=== PATIENT | male | born 1970 | race Caucasian/White ===

== ENCOUNTER 2020-05-02 10:36 | Day surgery (SDC) | payer MEDICAID ==
[2020-04-25 16:49] LABS: BASOPHILS % (AUTO) 0.1 % (0-1); EOSINOPHILS # (AUTO) 0.1 X10'3 (0-0.9); EOSINOPHILS % (AUTO) 1.3 % (0-6); LYMPHOCYTES # (AUTO) 1.9 X10'3 (1.1-4.8); LYMPHOCYTES % (AUTO) 22.4 % (21-51); MEAN CORPUSCULAR HEMOGLOBIN 33.8 PG (27.0-31.0); MEAN CORPUSCULAR HGB CONC 33.8 g/dL (33.0-36.5); MEAN CORPUSCULAR VOLUME 100.1 FL (78-98); MEAN PLATELET VOLUME 6.5 FL (7.4-10.4); MONOCYTES # (AUTO) 0.6 X10'3 (0-0.9); MONOCYTES % (AUTO) 7.5 % (2-12); NEUTROPHILS # (AUTO) 5.8 X10'3 (1.8-7.7); NEUTROPHILS % (AUTO) 68.7 % (42-75); PRE OP HEMATOCRIT 45.7 % (42.0-52.0); PRE OP HEMOGLOBIN 15.4 g/dL (14.0-17.9); PRE OP PLATELET COUNT 295 X10'3 (140-440); RED BLOOD COUNT 4.57 X10'6 (4.70-6.10); RED CELL DISTRIBUTION WIDTH 13.2 % (11.5-14.5)
[2020-04-25 16:50] LABS: ALBUMIN 3.7 G/DL (3.4-5.0); ALBUMIN/GLOBULIN RATIO 0.9 (1.1-1.5); ALKALINE PHOSPHATASE 86 IU/L (46-116); BLOOD UREA NITROGEN 20 MG/DL (7-18); BUN/CREATININE RATIO 17.4 (5.4-32.0); CALCIUM 9.3 MG/DL (8.5-10.1); CHLORIDE 105 MMOL/L (99-107); CREATININE 1.15 MG/DL (0.60-1.10); PRE OP ALT 27 U/L (30-65); PRE OP ANION GAP 8 (8-16); PRE OP AST 15 U/L (10-37); PRE OP BILIRUB, TOTAL 0.6 MG/DL (0.0-1.0); PRE OP GLUCOSE 98 MG/DL (70-104); PRE OP POTASSIUM 4.1 MMOL/L (3.4-5.1); PRE OP SODIUM 141 MMOL/L (135-145); TOTAL CARBON DIOXIDE 28.4 MMOL/L (24-32); TOTAL PROTEIN 7.6 G/DL (6.4-8.2); eGFR 68 ML/MIN
[2020-05-02] VITALS (11 sets, daily range): BP systolic 129–157; BP diastolic 84–107
[~2020-05-02] VITALS: Ht 177.8 cm; Wt 89.4 kg
[~2020-05-02 10:36] MED LIST: BUPIVAcaine/PF 2.5 mg/ml (0.25%) 30ml vial ONE; CYCL-1 PO; IBUP-1984 PO; LIDOcaine 1% 30ml preserv. free vial ONE; ceFAZolin 2gm in dextrose, iso 50 ML IV ONE; famotidine 20mg tablet PO ONE; ringers solution, lacted 1,000 ML IV SCH
[2020-05-02] MEDS ORDERED: midazolam 1 mg/ML 2ml injection ONE (12:58)
[2020-05-02] MEDS ORDERED: fentaNYL /PF 50mcg/ml 5ml ampule ONE (12:58)
[2020-05-02] MEDS ORDERED: glycopyrrolate 0.2mg/ml inj ONE (13:05)
[2020-05-02] MEDS ORDERED: sevoflurane 250ml liquid IH ONE (13:05)
[2020-05-02] MEDS ORDERED: neostigmine methylsulfate 1 MG/ML 10ml vial ONE (13:05)
[2020-05-02] MEDS ORDERED: LIDOcaine 2% 5ml jelly ONE (13:12)
[2020-05-02] MEDS ORDERED: LIDOcaine 2% (20mg/ml) 5ml vial ONE (14:11)
[2020-05-02] MEDS ORDERED: propofol inj 20 ML IV ONE (14:11)
[2020-05-02] MEDS ORDERED: ondansetron/PF 4mg/2ml inj ONE (14:11)
[2020-05-02] MEDS ORDERED: rocuronium 10mg/ml inj IV ONE (14:11)
[2020-05-02] MEDS ORDERED: dexamethasone sod phosphate 4mg/ml inj. ONE (14:11)
[2020-05-02] MEDS ORDERED: labetalol 20mg/4ml (5mg/ml) syringe IV PRN (14:30)
[2020-05-02] MEDS ORDERED: ketorolac trometh. 30mg/ml inj. IV ONE (14:30)
[2020-05-02] MEDS ORDERED: ondansetron/PF 4mg/2ml inj IV PRN (14:30)
[2020-05-02] MEDS ORDERED: acetaminophen 1,000mg/100ml IV 100 ML IV PRN (14:30)
[2020-05-02] MEDS ORDERED: proCHLORperazine 10 MG/2 ml inj IV PRN (14:30)
[2020-05-02] MEDS ORDERED: morphine 4 MG/ML inj SYRINge IV PRN (14:30)
[2020-05-02] MEDS ORDERED: meperidine/PF 25mg/ml syringe IV PRN ×3 (14:30)
[2020-05-02] MEDS ORDERED: morphine 2 MG/ML inj. syringe IV PRN (14:30)
[2020-05-02] MEDS ORDERED: ringers solution, lacted 1,000 ML IV SCH (14:30)
[2020-05-02] MEDS ORDERED: hydrALAZINE 20mg/ml inj. IV PRN (14:30)
--- NOTE | 2020-05-02 14:30 | NUR ---
Received from OR via [facility], accompanied by Anesthesiologist DR KRISHNAN and report given by Anesthesiologist. PATIENT WAKING UP, DENIES PAIN, V/S WNL, NEUROVASCULAR CHECKS INTACT, 20G PIV LUE, SCD ON, 3 BANDAIDS TO LAP SITES OF ABDOMEN-CDI.
--- NOTE | 2020-05-02 16:10 | NUR ---
3 BANDAIDS TO LAP SITES OF ABDOMEN-CDI. I HAVE REVIEWED D/C INSTRUCTIONS WITH PATIENT AND FAMILY HAVE VERBALIZED UNDERSTANDING.PATIENT WAS D/C HOME WITH ALL BELONGINGS AND FAMILY GAVE PATIENT A RIDE HOME. A&OX4, PAIN DECREASED-TOLERABLE, PT ABLE TO VOID AND AMBULATING W/O PROBLEM, V/S WNL, NEUROVASCULAR CHECKS INTACT, 20G PIV LUE D/C, SCD OFF, TRANSPORT HOME.
== END 2020-05-02 16:10 | disposition home or self-care (01) ==
LOC: PAS 10:36
PROVIDERS: ATTEND Surgery
DX: K40.90 Unilateral inguinal hernia, without obstruction or gangrene, not specified as recurrent (principal); Z20.822 Contact with and (suspected) exposure to COVID-19; F17.210 Nicotine dependence, cigarettes, uncomplicated; Z72.89 Other problems related to lifestyle
CPT/HCPCS: 36415; 49650; 80053; 82948; 85025; 93005; C1781; J0131; J1100; J1885; J2001; J2250; J2405; J2704; J2710; J3010; J3490; J7120; S2900; U0003; A4215; A4618

== ENCOUNTER 2020-05-13 22:46 | Emergency (ER) | payer MEDICAID ==
[~2020-05-13] VITALS: Ht 177.8 cm; Wt 90.9 kg
[~2020-05-13 22:46] MED LIST changes: -BUPIVAcaine/PF 2.5 mg/ml (0.25%) 30ml vial ONE; -LIDOcaine 1% 30ml preserv. free vial ONE; -ceFAZolin 2gm in dextrose, iso 50 ML IV ONE; -famotidine 20mg tablet PO ONE; -ringers solution, lacted 1,000 ML IV SCH
[2020-05-13] MEDS ORDERED: LIDOcaine 1% 30ml preserv. free vial IJ ONE (23:35)
[2020-05-13 23:58] VITALS: BP 144/103
[2020-05-14] MEDS ORDERED: cephalexin 500mg capsule PO ONE (00:50)
[2020-05-14] MEDS ORDERED: CEPH-585 PO (00:51)
== END 2020-05-14 01:15 | disposition home or self-care (01) ==
LOC: ER 22:46
DX: S61.012A Laceration without foreign body of left thumb without damage to nail, initial encounter (principal); S56.322A Laceration of extensor or abductor muscles, fascia and tendons of left thumb at forearm level, initial encounter; F17.200 Nicotine dependence, unspecified, uncomplicated; F12.90 Cannabis use, unspecified, uncomplicated; Z98.890 Other specified postprocedural states; Z79.2 Long term (current) use of antibiotics; Z79.899 Other long term (current) drug therapy; X58.XXXA Exposure to other specified factors, initial encounter; Y93.89 Activity, other specified; Y92.89 Other specified places as the place of occurrence of the external cause; Y99.8 Other external cause status
CPT/HCPCS: 12002; 73140; 99283